=== PATIENT | female | born 1995 ===

== ENCOUNTER 2018-04-20 04:10 | Inpatient (IN) | payer OTHER ==
--- NOTE | 2018-04-20 04:41 | PDOC.LDHP ---
Labor and Delivery H&P Chief complaint: contractions HPI: Started amrita at 0030 lasting about one minute and happening every 7-8 mins. denies LOF and VB. Reports movement. Current gestational age (weeks): 40 Due date: 04/19/18 Dating criteria: last menstrual period Grav: 4 Para: 2 OB History Details: 2011 6lbs. with epidural 2012 SAB 2013 39weeks 6.11oz with epidural 2017 current Current complications: none Abnormal US findings: No Past Medical History: Shingles during last exposure to TB. Current medications: pre-trevor vitamins, iron Previous surgical history: none Allergies/Adverse Reactions: Allergies Allergy/AdvReac Type Severity Reaction Status Date / Time No Known Allergies Allergy Verified 04/20/18 04:40 Social history: other (appendectomy) - Physical Exam Vital signs reviewed and normal: yes General: breathing through contractions Heart: RRR Lungs: nonlabored breathing Abdomen: gravid Extremeties: no edema FHT: category 1 [place] contractions every: q7min - Vaginal Exam cm dilated: 8 Effacement: 100% Station: 0 - OB Labs Blood type: A RH: positive Antibody Screen: negative HIV: negative RPR: negative HEPSAg: negative 1 hour GCT: negative GBS: negative Urine drug screen: not done Rubella: immune - Assessment L&D Assessment: term patient in labor - Plan Plan: admit to L&D (anticipate )
[2018-04-20 04:49] VITALS: BMI 24.3
[2018-04-20] MEDS ORDERED: Ibuprofen 800 MG TAB PO PRN (05:37)
[2018-04-20] MEDS ORDERED: NS / Oxytocin 40 units/1000ml 1,000 ML IV PRN (05:37)
[2018-04-20] MEDS ORDERED: Promethazine HCl 25 MG/ML VIAL IM PRN (05:37)
[2018-04-20] MEDS ORDERED: Ondansetron PF 4 MG/2 ML Vial IVP PRN ×2 (05:37→10:17)
[2018-04-20] MEDS ORDERED: Methylergonovine 0.2 MG/ML VIAL IM PRN ×2 (05:37→10:17)
[2018-04-20] MEDS ORDERED: Lidocaine 1% (PF) 30 ML VIAL SC PRN (05:37)
[2018-04-20] MEDS ORDERED: Lactated Ringer's 1,000 ML IV PRN (05:37)
[2018-04-20] MEDS ORDERED: HYDROcodone/Acetaminophen 5/325 mg Tablet PO PRN ×4 (05:37→10:17)
[2018-04-20] MEDS ORDERED: Misoprostol 200 MCG TAB PR PRN (05:37)
[2018-04-20 05:47] LABS: Hemoglobin 10.9 g/dL (12.0-16.0); Mean Corpuscular HGB CONC 31.7 g/dL (32.0-36.0); Mean Corpuscular Volume 85.1 fL (78.0-98.0); Mean Platelet Volume 6.9 fL (7.4-10.4); Platelet Count 260 thou/uL (130-400); RBC Distribution Width 13.7 % (11.5-14.5); Red Blood Cell (RBC) Count 4.05 mill/uL (4.20-5.40); White Blood Cell (WBC) Count 8.3 thou/uL (4.8-10.8)
[2018-04-20 06:19] LABS: HBSAg Index 0.21 S/CO (0-0.99); Hep B Surf Ag Non-Reactive S/CO (NonReactive); Syphilis Antibody Nonreactive (Nonreactive); Syphilis Antibody Index 0.02 S/CO (<1.00 Non-Reactive)
[2018-04-20] MEDS ORDERED: Butorphanol Tartrate 1 MG/ML VIAL ONE (06:47)
[2018-04-20] MEDS ORDERED: Butorphanol Tartrate 1 MG/ML VIAL SLOW IVP PRN (06:48)
--- NOTE | 2018-04-20 06:51 | PDOC.OPDEL ---
OB Operative/Delivery Note Delivery Dr/Surgeon: Pattie Stock CNM Pre-Delivery Diagnosis: active labor Procedure/Post Delivery Dx: spontaneous vaginal delivery Weeks gestation: 40 Anesthesia: none - Findings A Sex: male Weight: 7 lb 2 oz - 1 min: 8 - 5 min: 9 - Additional Findings/Plan Placenta delivered: spontaneous Repaired Obstetrical Laceration: none Estimated blood loss: 250mL Post delivery plan: routine recovery
[2018-04-20] MEDS ORDERED: Benzocaine/Menthol 20-0.5% 60 ML CAN TOP PRN (10:17)
[2018-04-20] MEDS ORDERED: Bisacodyl 10 MG SUPP PR PRN (10:17)
[2018-04-20] MEDS ORDERED: Adacel (T-DAP) 0.5 ML VIAL IM ONE (10:17)
[2018-04-20] MEDS ORDERED: Milk Of Magnesia 30 ML UDCUP PO PRN (10:17)
[2018-04-20] MEDS ORDERED: NS / Oxytocin 40 units/1000ml 1,000 ML IV SCH (10:17)
[2018-04-20] MEDS ORDERED: Misoprostol 200 MCG TAB VAG PRN (10:17)
[2018-04-20] MEDS ORDERED: Docusate Calcium (SURFAK) 240 MG CAP PO SCH (10:30)
[2018-04-20] MEDS ORDERED: Ferrous Sulfate 325 MG TAB PO SCH (10:30)
[2018-04-20] MEDS ORDERED: Prenatal Vitamin 1 TAB PO SCH (10:45)
[2018-04-20] MEDS: Ibuprofen 800 MG TAB PO SCH ×2 (14:41→21:23)
[2018-04-20] MEDS: Ferrous Sulfate 325 MG TAB PO SCH (14:46)
[2018-04-20] MEDS: Docusate Calcium (SURFAK) 240 MG CAP PO SCH (21:23)
[2018-04-21 05:55] LABS: Hemoglobin 9.7 g/dL (12.0-16.0); Mean Corpuscular HGB CONC 31.3 g/dL (32.0-36.0); Mean Corpuscular Volume 86.2 fL (78.0-98.0); Mean Platelet Volume 7.1 fL (7.4-10.4); Platelet Count 229 thou/uL (130-400); RBC Distribution Width 13.5 % (11.5-14.5); White Blood Cell (WBC) Count 9.4 thou/uL (4.8-10.8)
[2018-04-21] MEDS: Ibuprofen 800 MG TAB PO SCH (06:11)
[2018-04-21 08:23] VITALS: BP 121/59; TEMP 97.9
[2018-04-21] MEDS ORDERED: Prenatal Vitamin 1 TAB PO SCH (09:00)
[2018-04-21] MEDS: Ferrous Sulfate 325 MG TAB PO SCH (09:39)
[2018-04-21] MEDS: Docusate Calcium (SURFAK) 240 MG CAP PO SCH (09:39)
== END 2018-04-21 12:35 | disposition home or self-care (01) | DRG 807 ==
LOC: L&D/OP 04:10 → L&D-LIB 05:30 → 3SW 09:44
PROVIDERS: ADMIT Student in an Organized Health Care Education/Training Program; ATTEND Student in an Organized Health Care Education/Training Program
PROC: 10E0XZZ Delivery of Products of Conception, External Approach (ICD-10-PCS; principal; 2018-04-20)
DX: O80 Encounter for full-term uncomplicated delivery (principal); Z37.0 Single live birth; Z3A.39 39 weeks gestation of pregnancy
CPT/HCPCS: 36415; 85027; 86780; 86850; 86900; 86901; 87340; 99285; J0595; J2001